=== PATIENT | male | born 1955 ===

== ENCOUNTER 2021-08-06 12:10 | Emergency (ER) | payer SELFPAY ==
[2021-08-06 12:21] VITALS: BP 180/117
== END 2021-08-06 18:00 | disposition left against medical advice (07) ==
LOC: ED 12:10
DX: M25.48 Effusion, other site (principal); Z53.21 Procedure and treatment not carried out due to patient leaving prior to being seen by health care provider

== ENCOUNTER 2021-11-15 12:32 | Emergency (ER) | payer MEDICARE ==
[2021-11-15] MEDS ORDERED: valACYclovir 500 MG TAB PO ONE (14:50)
[2021-11-15] MEDS ORDERED: oxyCODONE /ACETAMINOPHEN 5-325MG TAB PO ONE (14:50)
--- NOTE | 2021-11-15 14:57 | Emergency Department Report ---
- General Chief complaint: Skin Rash Stated complaint: RASH ON STOMACH Time Seen by Provider: 11/15/21 14:45 Source: patient, EMS Mode of arrival: Ambulatory Limitations: No Limitations - History of Present Illness Initial comments: 66-year-old black male presents emergency department for evaluation of painful rash to the right side. He states that he noticed rash 2 days ago and he has been getting progressively worse and more painful. He denies fever or sick contacts. MD complaint: rash -: Gradual, days(s) (2) Location: chest (Right side only), back Severity: severe (Right side only) Quality: burning, aching Consistency: constant Treatments Prior to Arrival: none - Related Data Previous Rx's Medication Instructions Recorded Last Taken Type Valacyclovir HCl [Valtrex] 1,000 mg PO Q8HR 7 Days #21 tab 11/15/21 Unknown Rx oxyCODONE /ACETAMINOPHEN [Percocet 1 tab PO Q6HR PRN #12 tablet 11/15/21 Unknown Rx 5/325] Allergies Allergy/AdvReac Type Severity Reaction Status Date / Time No Known Allergies Allergy Verified 11/15/21 12:36 Abscess Boil HPI - HPI Chief Complaint: Skin Rash Stated Complaint: RASH ON STOMACH Time Seen by Provider: 11/15/21 14:45 Home Medications: Previous Rx's Medication Instructions Recorded Last Taken Type Valacyclovir HCl [Valtrex] 1,000 mg PO Q8HR 7 Days #21 tab 11/15/21 Unknown Rx oxyCODONE /ACETAMINOPHEN [Percocet 1 tab PO Q6HR PRN #12 tablet 11/15/21 Unknown Rx 5/325] Allergies/Adverse Reactions: Allergies Allergy/AdvReac Type Severity Reaction Status Date / Time No Known Allergies Allergy Verified 11/15/21 12:36 ED Review of Systems ROS: Stated complaint: RASH ON STOMACH Other details as noted in HPI Comment: All other systems reviewed and negative Constitutional: denies: chills, fever Eyes: denies: vision change Respiratory: denies: shortness of breath Cardiovascular: denies: chest pain, palpitations Gastrointestinal: denies: abdominal pain, nausea, vomiting Neurological: denies: headache, weakness ED Past Medical Hx - Medications Home Medications: Home Medications Medication Instructions Recorded Confirmed Last Taken Type Valacyclovir HCl [Valtrex] 1,000 mg PO Q8HR 7 Days #21 tab 11/15/21 Unknown Rx oxyCODONE /ACETAMINOPHEN [Percocet 1 tab PO Q6HR PRN #12 tablet 11/15/21 Unknown Rx 5/325] ED Physical Exam - General Limitations: No Limitations General appearance: alert, in no apparent distress - Head Head exam: Present: atraumatic, normocephalic - Eye Eye exam: Present: normal appearance. Absent: conjunctival injection - Neck Neck exam: Present: normal inspection. Absent: lymphadenopathy - Respiratory Respiratory exam: Present: chest wall tenderness (Right side only). Absent: respiratory distress - Cardiovascular Cardiovascular Exam: Present: regular rate - GI/Abdominal GI/Abdominal exam: Present: soft. Absent: distended, tenderness - Extremities Exam Extremities exam: Present: normal inspection, normal capillary refill - Back Exam Back exam: Present: normal inspection, tenderness (Right mid) - Neurological Exam Neurological exam: Present: alert, oriented X3, normal gait - Psychiatric Psychiatric exam: Present: normal affect, normal mood - Skin Skin exam: Present: warm, dry, intact, normal color, rash - Expanded Skin Exam Expanded Type of lesion: Present: rash Distribution of rash: chest (Right mid), back (Right mid) Description of rash: Present: vesicular. Absent: discharge 1 - Vesicular rash 2 - Vesicular rash ED Course Vital Signs 11/15/21 11/15/21 11/15/21 12:35 15:38 15:40 Pulse Rate 78 80 Respiratory 18 18 Rate Blood Pressure 138/74 142/83 [Left] O2 Sat by Pulse 98 97 97 Oximetry ED Medical Decision Making - Medical Decision Making 66-year-old black male presents emergency department for evaluation of painful rash to the right side. He states that he noticed rash 2 days ago and he has been getting progressively worse and more painful. He denies fever or sick contacts. Physical exam consistent with shingles. Patient be discharged home with valacyclovir and Percocet. He is advised to take medications as prescribed and follow-up with his primary care provider if no improvement or worsening s ymptoms. He verbalizes understanding of and agreement with plan of care. Critical care attestation.: If time is entered above; I have spent that time in minutes in the direct care of this critically ill patient, excluding procedure time. ED Disposition Clinical Impression: Shingles Qualifiers: Herpes zoster complications: without complications Qualified Code(s): B02.9 - Zoster without complications Disposition: 01 HOME / SELF CARE / HOMELESS Is pt being admited?: No Condition: Stable Instructions: Shingles, [id number] Additional Instructions: Take medications as prescribed. Follow-up with your primary care provider if no improvement or worsening symptoms. Return to the emergency department as needed. Prescriptions: oxyCODONE /ACETAMINOPHEN [Percocet 5/325] 1 tab PO Q6HR PRN #12 tablet PRN Reason: Pain Valacyclovir HCl [Valtrex] 1,000 mg PO Q8HR 7 Days #21 tab Referrals: MAXIMINO GRIMALDO MD [Primary Care Provider] - 3-5 Days Time of Disposition: 14:57
[2021-11-15 15:49] VITALS: BP 142/83
== END 2021-11-15 15:41 | disposition home or self-care (01) ==
LOC: ED 12:32
DX: B02.9 Zoster without complications (principal); Z79.899 Other long term (current) drug therapy
CPT/HCPCS: 99283